=== PATIENT | male | born 1975 | race Hispanic/Latino ===

== ENCOUNTER 2017-10-08 11:21 | Inpatient (IN) | payer BC ==
[~2017-10-08] VITALS: Ht 182.9 cm; Wt 106.7 kg
[2017-10-08 11:46] VITALS: BP 147/90
[2017-10-08] MEDS ORDERED: DEXTROSE 50%-WATER 50 ML DISP.SYRIN IV PRN (12:15)
[2017-10-08] MEDS ORDERED: GLUCAGON 1MG KIT 1 MG ML IM PRN (12:15)
[2017-10-08] MEDS ORDERED: ACETAMINOPHEN 325 MG TAB PO PRN (12:15)
[2017-10-08] MEDS ORDERED: MAG HYDROX/AL HYDROX/SIMETH ES 30 ML SUSP UDCUP PO PRN (12:15)
[2017-10-08 12:37] LABS: HEMATOCRIT 43.7 % (42-54); PLATELET COUNT (AUTO) 364 K/uL (130-400); RED BLOOD CELL COUNT(AUTO) 5.28 MIL/uL (4.50-6.20); RED CELL DISTRIBUTION WIDTH 15.4 % (11.0-15.5); WHITE BLOOD COUNT (AUTO) 20.2 K/uL (4.8-10.8)
[2017-10-08] MEDS: ONDANSETRON HCL 4 MG/2 ML VIAL IVP PRN ×2 (12:37→19:09)
[2017-10-08] MEDS: HYDROMORPHONE HCL 2 MG/ML VIAL IVP PRN ×4 (12:46→23:12)
[2017-10-08] MEDS: NS-20 MEQ KCL 1000ML 1,000 ML IV SCH ×2 (12:49→20:17)
[2017-10-08 12:54] LABS: POTASSIUM 3.8 mmol/L (3.5-5.1)
[2017-10-08 13:06] LABS: MEAN CORPUSCULAR HEMOGLOBIN 30.9 pg (27.0-33.0); MEAN CORPUSCULAR VOLUME 83.5 fL (79-99)
[2017-10-08 13:09] LABS: LYMPHOCYTES % (MANUAL) 10 % (22-44); MAN.DIFF COMMENT-IMPRESSION MANUAL DIFFERENTIAL; MONOCYTES % (MANUAL) 8 % (2-9); SEGMENTED NEUTROPHILS % 82 % (40-70)
[2017-10-08 13:10] LABS: PLATELET MORPHOLOGY COMMENT ADEQUATE
[2017-10-08 13:44] LABS: ALBUMIN 3.1 g/dL (3.5-5.0); BILIRUBIN,TOTAL 0.3 mg/dL (0.2-1.0); CREATININE 0.8 mg/dL (0.5-1.5)
[2017-10-08] MEDS ORDERED: IOPAMIDOL-370 75 ML VIAL IV ONE (15:14)
[2017-10-08 15:48] VITALS: BP 143/90
[2017-10-08] MEDS ORDERED: DOXY100V2 PO (16:22)
[2017-10-08] MEDS ORDERED: FISH1CAP27 PO (16:22)
[2017-10-08] MEDS ORDERED: INSU100C6 SQ (16:22)
[2017-10-08] MEDS ORDERED: ACET1TAB25 PO (16:22)
[2017-10-08] MEDS ORDERED: VITA15LO2 PO (16:22)
[2017-10-08] MEDS ORDERED: FENO130C8 PO (16:22)
[2017-10-08] MEDS ORDERED: METF-527 PO (16:22)
[2017-10-08] MEDS ORDERED: UBID400C6 PO (16:22)
[2017-10-08] MEDS ORDERED: INSU100V12 SQ (16:22)
[2017-10-08] MEDS ORDERED: METH1TAB55 PO (16:22)
[2017-10-08] MEDS ORDERED: ROSU20TA PO (16:22)
[2017-10-08] MEDS: INSULIN R PO SSI SQ SCH (16:30)
[2017-10-08] MEDS: KETOROLAC TROMETHAMINE 15MG/ML IV PRN (19:09)
[2017-10-08 19:31] VITALS: BP 142/87
[2017-10-08] MEDS ORDERED: MEROPENEM 1GM IVPB PREMIXED 1 GM IV SCH (22:15)
[2017-10-08] MEDS ORDERED: MEROPENEM 1 GM VIAL ONE (22:40)
[2017-10-08 23:26] VITALS: BP 141/79
[2017-10-08] MEDS: MEROPENEM 1 GM VIAL IVP SCH (23:49)
[2017-10-09] MEDS: NS-20 MEQ KCL 1000ML 1,000 ML IV SCH ×3 (02:08→13:20)
[2017-10-09] MEDS: ONDANSETRON HCL 4 MG/2 ML VIAL IVP PRN ×3 (02:12→23:07)
[2017-10-09] MEDS: HYDROMORPHONE HCL 2 MG/ML VIAL IVP PRN ×4 (02:15→11:53)
[2017-10-09 04:00] VITALS: BP 146/75
[2017-10-09 04:46] LABS: HEMATOCRIT 43.9 % (42-54); MEAN CORPUSCULAR HEMOGLOBIN 34.3 pg (27.0-33.0); MEAN CORPUSCULAR VOLUME 83.7 fL (79-99); PLATELET COUNT (AUTO) 321 K/uL (130-400); RED BLOOD CELL COUNT(AUTO) 5.25 MIL/uL (4.50-6.20); RED CELL DISTRIBUTION WIDTH 15.5 % (11.0-15.5); WHITE BLOOD COUNT (AUTO) 19.8 K/uL (4.8-10.8)
[2017-10-09 05:46] LABS: POTASSIUM 4.8 mmol/L (3.5-5.1)
[2017-10-09 05:48] LABS: BILIRUBIN,TOTAL 0.5 mg/dL (0.2-1.0); CREATININE 1.3 mg/dL (0.5-1.5); TOTAL PROTEIN, SERUM 6.4 g/dL (6.0-8.3)
[2017-10-09 05:49] LABS: ALBUMIN 3.5 g/dL (3.5-5.0)
[2017-10-09] MEDS: INSULIN R PO SSI SQ SCH ×5 (06:11→21:38)
[2017-10-09 08:00] VITALS: BP 134/82
[2017-10-09] MEDS: MEROPENEM 1 GM VIAL IVP SCH ×3 (08:08→23:50)
[2017-10-09] MEDS: PANTOPRAZOLE SODIUM 40 MG TABLET.DR PO SCH (08:09)
[2017-10-09] MEDS ORDERED: PANTOPRAZOLE SODIUM 40 MG TABLET.DR PO SCH (09:00)
[2017-10-09 11:36] VITALS: BP 122/80
[2017-10-09] MEDS: SODIUM CHLORIDE 0.9% 1000ML 1,000 ML IV SCH (14:45)
[2017-10-09] MEDS ORDERED: NALOXONE HCL 0.4 MG/1 ML ML IVP PRN (14:45)
[2017-10-09] MEDS ORDERED: INSULIN GLARGINE 100 UNITS/ML 10 ML VIAL SQ ONE ×2 (14:45→15:27)
[2017-10-09] MEDS ORDERED: HYDROMORPHONE PCA 10 MG/50 ML 50 ML IV PRN (14:45)
[2017-10-09 16:00] VITALS: BP 150/88
[2017-10-09 19:50] VITALS: BP 139/84
[2017-10-09] MEDS: INSULIN GLARGINE 100 UNITS/ML 10 ML VIAL SQ SCH (21:37)
[2017-10-10] VITALS (15 sets, daily range): BP systolic 109–141; BP diastolic 61–97
[2017-10-10] MEDS: SODIUM CHLORIDE 0.9% 1000ML 1,000 ML IV SCH ×3 (00:03→20:36)
[2017-10-10] MEDS: INSULIN R PO SSI SQ SCH ×5 (01:14→20:28)
[2017-10-10] MEDS: KETOROLAC TROMETHAMINE 15MG/ML IV PRN ×2 (04:40→09:31)
[2017-10-10 06:22] LABS: ALBUMIN 2.7 g/dL (3.5-5.0); BILIRUBIN,TOTAL 1.7 mg/dL (0.2-1.0); CREATININE 1.3 mg/dL (0.5-1.5); POTASSIUM 4.6 mmol/L (3.5-5.1); TOTAL PROTEIN, SERUM 6.5 g/dL (6.0-8.3)
[2017-10-10] MEDS: MEROPENEM 1 GM VIAL IVP SCH ×3 (09:30→23:37)
[2017-10-10] MEDS: PANTOPRAZOLE SODIUM 40 MG TABLET.DR PO SCH (09:31)
[2017-10-10] MEDS ORDERED: PROPOFOL 1000 MG/100 ML 100 ML IV ONE (10:40)
[2017-10-10] MEDS ORDERED: LIDOCAINE HCL 1% 20 ML VIAL ONE (10:40)
[2017-10-10] MEDS: ONDANSETRON HCL 4 MG/2 ML VIAL IVP PRN ×3 (12:12→23:45)
[2017-10-10] MEDS ORDERED: MORPHINE SULFATE 5 MG/ML VIAL IVP PRN (15:15)
[2017-10-10] MEDS ORDERED: MORPHINE SULFATE 4 MG/1ML SYG ONE (16:20)
[2017-10-10] MEDS: HYDROMORPHONE HCL 2 MG/ML VIAL IVP PRN ×2 (19:49→23:47)
[2017-10-10] MEDS: INSULIN GLARGINE 100 UNITS/ML 10 ML VIAL SQ SCH (20:26)
[2017-10-11 03:42] VITALS: BP 121/81
[2017-10-11] MEDS: ONDANSETRON HCL 4 MG/2 ML VIAL IVP PRN ×3 (05:07→16:51)
[2017-10-11] MEDS: HYDROMORPHONE HCL 2 MG/ML VIAL IVP PRN ×4 (05:08→20:41)
[2017-10-11] MEDS: SODIUM CHLORIDE 0.9% 1000ML 1,000 ML IV SCH ×2 (05:51→16:41)
[2017-10-11] MEDS: INSULIN R PO SSI SQ SCH ×4 (06:12→20:50)
[2017-10-11 06:38] LABS: HEMATOCRIT 32.3 % (42-54); MEAN CORPUSCULAR HEMOGLOBIN 29.6 pg (27.0-33.0); MEAN CORPUSCULAR HGB CONC 35.3 g/dL (32.0-36.0); MEAN CORPUSCULAR VOLUME 83.8 fL (79-99); PLATELET COUNT (AUTO) 168 K/uL (130-400); RED BLOOD CELL COUNT(AUTO) 3.85 MIL/uL (4.50-6.20); RED CELL DISTRIBUTION WIDTH 15.9 % (11.0-15.5); WHITE BLOOD COUNT (AUTO) 8.5 K/uL (4.8-10.8)
[2017-10-11 06:54] LABS: ALBUMIN 2.4 g/dL (3.5-5.0); BILIRUBIN,TOTAL 0.7 mg/dL (0.2-1.0); POTASSIUM 4.1 mmol/L (3.5-5.1); TOTAL PROTEIN, SERUM 6.1 g/dL (6.0-8.3)
[2017-10-11 08:00] VITALS: BP 117/73
[2017-10-11] MEDS: MEROPENEM 1 GM VIAL IVP SCH ×2 (08:50→16:41)
[2017-10-11] MEDS: PANTOPRAZOLE SODIUM 40 MG TABLET.DR PO SCH ×2 (08:57→21:32)
[2017-10-11 11:00] VITALS: BP 134/90
[2017-10-11 16:00] VITALS: BP 136/91
[2017-10-11 20:00] VITALS: BP 145/96
[2017-10-11] MEDS: [UNRECOGNIZED DRUG - OTHER] PO SCH (20:37)
[2017-10-11] MEDS: INSULIN GLARGINE 100 UNITS/ML 10 ML VIAL SQ SCH (20:49)
[2017-10-12] VITALS (7 sets, daily range): BP systolic 138–151; BP diastolic 84–99
[2017-10-12] MEDS: MEROPENEM 1 GM VIAL IVP SCH ×3 (00:46→16:50)
[2017-10-12] MEDS: HYDROMORPHONE HCL 2 MG/ML VIAL IVP PRN ×5 (00:53→21:56)
[2017-10-12] MEDS: ONDANSETRON HCL 4 MG/2 ML VIAL IVP PRN ×4 (02:25→21:56)
[2017-10-12] MEDS: SODIUM CHLORIDE 0.9% 1000ML 1,000 ML IV SCH (02:45)
[2017-10-12] MEDS: INSULIN R PO SSI SQ SCH ×5 (06:36→21:54)
[2017-10-12] MEDS: [UNRECOGNIZED DRUG - OTHER] PO SCH ×3 (08:53→16:53)
[2017-10-12] MEDS: PANTOPRAZOLE SODIUM 40 MG TABLET.DR PO SCH ×2 (08:53→21:56)
[2017-10-12] MEDS: INSULIN GLARGINE 100 UNITS/ML 10 ML VIAL SQ SCH (21:55)
[2017-10-13] MEDS: MEROPENEM 1 GM VIAL IVP SCH ×4 (00:06→23:47)
[2017-10-13] MEDS: HYDROMORPHONE HCL 2 MG/ML VIAL IVP PRN ×6 (01:31→23:47)
[2017-10-13 04:00] VITALS: BP 147/89
[2017-10-13 04:20] LABS: HEMATOCRIT 33.4 % (42-54); MEAN CORPUSCULAR HGB CONC 34.9 g/dL (32.0-36.0); MEAN CORPUSCULAR VOLUME 83.1 fL (79-99); PLATELET COUNT (AUTO) 177 K/uL (130-400); RED BLOOD CELL COUNT(AUTO) 4.02 MIL/uL (4.50-6.20); RED CELL DISTRIBUTION WIDTH 15.6 % (11.0-15.5); WHITE BLOOD COUNT (AUTO) 9.3 K/uL (4.8-10.8)
[2017-10-13 04:47] LABS: CREATININE 0.8 mg/dL (0.5-1.5); POTASSIUM 3.2 mmol/L (3.5-5.1)
[2017-10-13] MEDS: ONDANSETRON HCL 4 MG/2 ML VIAL IVP PRN ×3 (05:43→23:46)
[2017-10-13] MEDS: INSULIN R PO SSI SQ SCH ×4 (06:34→21:10)
[2017-10-13 07:00] VITALS: BP 143/83
[2017-10-13] MEDS: [UNRECOGNIZED DRUG - OTHER] PO SCH ×3 (08:26→17:00)
[2017-10-13] MEDS: PANTOPRAZOLE SODIUM 40 MG TABLET.DR PO SCH ×2 (08:26→21:14)
[2017-10-13 11:00] VITALS: BP 141/90
[2017-10-13 16:00] VITALS: BP 142/95
[2017-10-13] MEDS: POTASSIUM CHLORIDE 20 MEQ ERTAB PO SCH (18:00)
[2017-10-13 20:00] VITALS: BP 146/97
[2017-10-13] MEDS: INSULIN GLARGINE 100 UNITS/ML 10 ML VIAL SQ SCH (21:09)
[2017-10-13] MEDS: SUCRALFATE 1 GM/10 ML PO SCH (21:14)
[2017-10-13] MEDS ORDERED: SIMETHICONE 80 MG TAB.CHEW PO PRN (23:15)
[2017-10-14 00:09] VITALS: BP 138/94
[2017-10-14 04:00] VITALS: BP 146/97
[2017-10-14] MEDS: TRAMADOL HCL 50 MG TABLET PO PRN (04:42)
[2017-10-14] MEDS: SUCRALFATE 1 GM/10 ML PO SCH ×4 (06:27→20:47)
[2017-10-14] MEDS: INSULIN R PO SSI SQ SCH ×4 (06:28→20:41)
[2017-10-14 08:00] VITALS: BP 155/91
[2017-10-14] MEDS: [UNRECOGNIZED DRUG - OTHER] PO SCH ×3 (08:00→17:00)
[2017-10-14] MEDS: PANTOPRAZOLE SODIUM 40 MG TABLET.DR PO SCH ×2 (09:00→20:47)
[2017-10-14] MEDS: ONDANSETRON HCL 4 MG/2 ML VIAL IVP PRN ×2 (09:46→18:22)
[2017-10-14] MEDS: HYDROMORPHONE HCL 2 MG/ML VIAL IVP PRN ×2 (09:47→18:22)
[2017-10-14] MEDS: MEROPENEM 1 GM VIAL IVP SCH ×2 (09:48→15:30)
[2017-10-14 11:25] VITALS: BP 136/79
[2017-10-14] MEDS ORDERED: KETOROLAC TROMETHAMINE 15MG/ML ONE (15:22)
[2017-10-14] MEDS ORDERED: KETOROLAC TROMETHAMINE 15MG/ML IV SCH (15:30)
[2017-10-14 15:43] VITALS: BP 139/85
[2017-10-14] MEDS: POTASSIUM CHLORIDE 20 MEQ ERTAB PO SCH (17:47)
[2017-10-14 19:57] VITALS: BP 141/87
[2017-10-14] MEDS: INSULIN GLARGINE 100 UNITS/ML 10 ML VIAL SQ SCH (20:44)
[2017-10-15] VITALS (7 sets, daily range): BP systolic 131–146; BP diastolic 79–97
[2017-10-15] MEDS: ENOXAPARIN SODIUM 30 MG/0.3 ML SQ SCH (00:27)
[2017-10-15] MEDS: MEROPENEM 1 GM VIAL IVP SCH ×3 (00:27→17:12)
[2017-10-15] MEDS: HYDROMORPHONE HCL 2 MG/ML VIAL IVP PRN ×3 (00:53→13:03)
[2017-10-15] MEDS: ONDANSETRON HCL 4 MG/2 ML VIAL IVP PRN ×4 (00:53→18:11)
[2017-10-15] MEDS: POTASSIUM CHLORIDE 20 MEQ ERTAB PO SCH ×2 (01:19→18:12)
[2017-10-15] MEDS: TRAMADOL HCL 50 MG TABLET PO PRN (03:20)
[2017-10-15] MEDS: SUCRALFATE 1 GM/10 ML PO SCH ×4 (07:50→20:43)
[2017-10-15] MEDS: [UNRECOGNIZED DRUG - OTHER] PO SCH ×3 (07:51→17:12)
[2017-10-15] MEDS: PANTOPRAZOLE SODIUM 40 MG TABLET.DR PO SCH ×2 (07:51→20:43)
[2017-10-15] MEDS: INSULIN R PO SSI SQ SCH ×4 (08:08→20:55)
[2017-10-15] MEDS ORDERED: PHARMACY COMMUNICATION MISC SCH ×2 (16:45→19:45)
[2017-10-15] MEDS: KETOROLAC TROMETHAMINE 15MG/ML IV PRN (20:41)
[2017-10-15] MEDS: DOCUSATE SODIUM 100 MG CAP PO SCH (20:43)
[2017-10-15] MEDS: INSULIN GLARGINE 100 UNITS/ML 10 ML VIAL SQ SCH (20:54)
[2017-10-15] MEDS ORDERED: [UNRECOGNIZED DRUG - OTHER] PO SCH (21:00)
[2017-10-16] MEDS: MEROPENEM 1 GM VIAL IVP SCH ×3 (01:38→16:00)
[2017-10-16] MEDS: ENOXAPARIN SODIUM 30 MG/0.3 ML SQ SCH (01:41)
[2017-10-16 03:00] VITALS: BP 145/87
[2017-10-16] MEDS: ONDANSETRON HCL 4 MG/2 ML VIAL IVP PRN ×3 (04:40→16:55)
[2017-10-16] MEDS: KETOROLAC TROMETHAMINE 15MG/ML IV PRN ×3 (04:49→16:47)
[2017-10-16] MEDS: SUCRALFATE 1 GM/10 ML PO SCH ×3 (06:39→16:30)
[2017-10-16] MEDS: INSULIN R PO SSI SQ SCH ×3 (06:44→16:30)
[2017-10-16 08:00] VITALS: BP 118/79
[2017-10-16] MEDS: [UNRECOGNIZED DRUG - OTHER] PO SCH ×2 (08:00→10:38)
[2017-10-16] MEDS: PANTOPRAZOLE SODIUM 40 MG TABLET.DR PO SCH (10:38)
[2017-10-16] MEDS: DOCUSATE SODIUM 100 MG CAP PO SCH ×2 (10:38→14:00)
[2017-10-16 11:40] VITALS: BP 128/88
[2017-10-16] MEDS ORDERED: SENNOSIDES 8.6 MG TABLET PO SCH (21:00)
== END 2017-10-16 18:10 | disposition home or self-care (01) | DRG 871 ==
LOC: EDH 11:21 → EDHIP 11:22 → 3DH 11:38
PROVIDERS: ADMIT Internal Medicine; ATTEND Internal Medicine
PROC: 0DJ08ZZ Inspection of Upper Intestinal Tract, Via Natural or Artificial Opening Endoscopic (ICD-10-PCS; principal; 2017-10-10)
DX: A41.9 Sepsis, unspecified organism (principal); K85.90 Acute pancreatitis without necrosis or infection, unspecified; E87.1 Hypo-osmolality and hyponatremia; K86.1 Other chronic pancreatitis; E11.65 Type 2 diabetes mellitus with hyperglycemia; K76.0 Fatty (change of) liver, not elsewhere classified; E66.01 Morbid (severe) obesity due to excess calories; K86.3 Pseudocyst of pancreas; G89.29 Other chronic pain; R65.20 Severe sepsis without septic shock; K29.70 Gastritis, unspecified, without bleeding; E86.0 Dehydration; E78.1 Pure hyperglyceridemia; E87.6 Hypokalemia; E78.5 Hyperlipidemia, unspecified; Z82.49 Family history of ischemic heart disease and other diseases of the circulatory system; Z83.3 Family history of diabetes mellitus; Z80.6 Family history of leukemia; Z28.21 Immunization not carried out because of patient refusal; Z68.31 Body mass index [BMI] 31.0-31.9, adult
CPT/HCPCS: 36415; 43231; 74160; 76700; 78226; 80048; 80053; 82150; 82948; 83690; 84478; 85007; 85027; A4218; A9537; J1170; J1650; J1815; J1885; J2185; J2270; J2405; J2704; J3480; J7030; Q9967

== ENCOUNTER 2018-11-01 05:00 | Inpatient (IN) | payer BC | END 2018-11-04 10:00 | disposition home or self-care (01) | LOC: EDH 05:00 → EDHIP 07:00 → 4CH 13:52 | DX: K85.90 Acute pancreatitis without necrosis or infection, unspecified (principal); K86.3 Pseudocyst of pancreas; K86.1 Other chronic pancreatitis; E11.9 Type 2 diabetes mellitus without complications; Z79.4 Long term (current) use of insulin; E78.5 Hyperlipidemia, unspecified ==